=== PATIENT | male | born 1970 | race Two or more races ===

== ENCOUNTER 2022-11-23 14:09 | Emergency (ER) | payer OTHER ==
[~2022-11-23] VITALS: Ht 182.9 cm; Wt 90.7 kg
[2022-11-23] MEDS ORDERED: LOSARTAN POTASS25 MG PO (15:01)
[2022-11-23] MEDS ORDERED: TAPAZOLE5 MG PO (15:02)
[2022-11-23] MEDS ORDERED: ROSUVASTATIN CA10 MG PO (15:02)
== END 2022-11-23 19:57 | disposition home or self-care (01) ==
LOC: ER 14:09
DX: S69.81XA Other specified injuries of right wrist, hand and finger(s), initial encounter (principal); X58.XXXA Exposure to other specified factors, initial encounter; Y93.89 Activity, other specified; Y92.89 Other specified places as the place of occurrence of the external cause; Y99.8 Other external cause status; M79.644 Pain in right finger(s); E03.8 Other specified hypothyroidism; I10 Essential (primary) hypertension